=== PATIENT | male | born 1975 | race African-American/Black ===

== ENCOUNTER 2016-07-17 16:35 | Emergency (ER) | payer OTHER ==
[~2016-07-17 16:35] MED LIST: ALLERGY MED; BACTRIM DS TABL1 TA1 PO; DELTASONE20 MG PO; HYDROCODON-ACE1 EAC9 PO; NAPROXEN; NO MEDICATIONS; VOLTAREN75 MG PO
== END 2016-07-17 16:38 | disposition home or self-care (01) ==
LOC: SED 16:35
DX: H10.13 Acute atopic conjunctivitis, bilateral (principal); Z88.0 Allergy status to penicillin
CPT/HCPCS: 82947; 99283

== ENCOUNTER 2016-08-16 13:47 | Emergency (ER) | payer OTHER | END 2016-08-16 13:51 | disposition home or self-care (01) | LOC: SED 13:47 | DX: M75.51 Bursitis of right shoulder (principal); S93.401A Sprain of unspecified ligament of right ankle, initial encounter; X58.XXXA Exposure to other specified factors, initial encounter | CPT/HCPCS: 99283 ==

== ENCOUNTER → 2016-08-27 | Outpatient (CLI) | payer OTHER ==
--- NOTE | ~2016-08-27 | CR21 ---
[facility] A Service [facility] RADIOLOGY TEXT RESULTS PATIENT: YAS VILLANUEVA JR LOCATION: [facility] : [birth year] UNIT #: [id number] AGE: [address]: Eusebio Degroot MD SEX: M ORDER DR: [id number] [address] [id number] O MR#: [id number] #: [id number] NAME: YAS VILLANUEVA : 1975 SEX: M STUDY DATE/TIME: 08/27/2016 17:44 UNIT: [facility] ROOM: STUDY DESCRIPTION: CR Ankle Min 3 Views Rt Attending Physician: Eusebio Degroot M.D. Referring Physician: Eusebio Degroot M.D. Ordering Physician: Eusebio Degroot M.D. Primary Care Physician: Eusebio Degroot M.D. MEDICAL IMAGING REPORT This report is preliminary unless electronic signature is present. EXAM Right ankle, 08/27/16 HISTORY Constant lateral ankle pain following a twisting injury in March of 2016. COMPARISON STUDIES 04/18/16 TECHNIQUE Three views of the ankle were obtained. FINDINGS Three views of the ankle again show no acute abnormalities. The ankle mortis is symmetric. The dome of the talus is intact. No fractures or destructive bone lesions are seen. Pes planus deformity of the foot is again noted and unchanged. IMPRESSION Pes planus. Normal ankle. No change from the previous exam. Dictated by... Jay Brooks M.D. THIS IS AN ELECTRONICALLY VERIFIED REPORT Jay Brooks M.D. at 08/28/2016 10:03 AM ROCK[facility]/edward [facility] A Service [facility] RADIOLOGY TEXT RESULTS PATIENT: YAS VILLANUEVA JR LOCATION: [facility] : [birth year] UNIT #: [id number] AGE: [address]: Eusebio Degroot MD SEX: M ORDER DR: TD: 08/28/2016 00:55 JOB #: [id number] MEDICAL IMAGING REPORT Page 1 of 1
== END | disposition home or self-care (01) ==
LOC: SRAD 17:38
DX: M25.571 Pain in right ankle and joints of right foot (principal); M21.41 Flat foot [pes planus] (acquired), right foot
CPT/HCPCS: 73610

== ENCOUNTER 2016-10-11 03:13 | Emergency (ER) | payer OTHER | END 2016-10-11 04:01 | disposition home or self-care (01) | LOC: SED 03:13 | DX: R19.7 Diarrhea, unspecified (principal); R11.0 Nausea; R10.9 Unspecified abdominal pain; Z88.0 Allergy status to penicillin | CPT/HCPCS: 99283 ==